=== PATIENT | female | born 1965 | race Caucasian/White ===

== ENCOUNTER → 2020-12-14 09:02 | Outpatient (CLI) | payer BC, SELFPAY ==
[2020-12-14 10:08] LABS: Add Manual Diff / Slide Review NO; Basophils Absolute Auto 100 /uL (0-100); Basophils Percent Auto 1.2 % (0-2); Eosinophils Absolute Auto 100 /uL (0-450); Eosinophils Percent Auto 1.4 % (2-4); Hematocrit 42.8 % (36-46); Hemoglobin 14.1 g/dL (12.0-16.0); Lymphocytes Absolute Auto 1500 /uL (1100-4500); Lymphocytes Percent Auto 34.5 % (25-40); Mean Corpuscular Hemoglobin 29.9 PG (26-34); Mean Corpuscular Volume 90.5 fL (80-100); Monocytes Absolute Auto 400 /uL (0-900); Monocytes Percent Auto 9.5 % (3-14); Neutrophils Absolute Auto 2300 /uL (1500-7000); Neutrophils Percent Auto 53.4 % (50-75); Platelet Count 266 X10^3/uL (150-400); Red Blood Cell Count 4.74 X10^6/uL (4.0-5.2); Red Cell Distribution Width 13.4 % (11.6-14.8); White Blood Cell Count 4.3 X10^3/uL (4.5-11.0)
[2020-12-14 10:49] LABS: Alanine Aminotransferase 11 IU/L (<35); Albumin 4.3 g/dL (3.5-5.0); Albumin Globulin Ratio 1.9 (1.0-2.8); Alkaline Phosphatase 60 U/L (38-126); Aspartate Aminotransferase 25 IU/L (14-36); BUN Creatinine Ratio 15.8 (6-22); Bilirubin Total 0.5 mg/dL (0.2-1.3); Blood Urea Nitrogen 12 mg/dL (7-17); Carbon Dioxide 25 mmol/L (22-32); Chloride 106 mmol/L (98-107); Cholesterol 224 mg/dL (140-199); Estimated Glomerular Filt Rate > 60.0 mL/min (>60); Globulin 2.3 g/dL (1.7-4.1); Glucose 95 mg/dL (70-100); HDL Cholesterol 86 mg/dL (40-60); HEMOLYSIS < 15 (0-50); LDL Cholesterol Calculated 126 mg/dL (<100); Potassium 4.6 mmol/L (3.4-5.1); Sodium 139 mmol/L (137-145); Total Protein 6.6 g/dL (6.3-8.2); Triglycerides 61 mg/dL (35-150)
[2020-12-14 11:14] LABS: TSH w/ Reflex to FT4 1.89 uIU/mL (0.47-4.68)
== END ==
PROVIDERS: PCP Family Medicine; Referring Provider Family Medicine; Visit Provider Family Medicine
DX: F32.9 Major depressive disorder, single episode, unspecified (principal); G43.909 Migraine, unspecified, not intractable, without status migrainosus; L82.1 Other seborrheic keratosis; Z13.220 Encounter for screening for lipoid disorders
CPT/HCPCS: 36415; 80053; 80061; 83036; 84443; 85025

== ENCOUNTER → 2021-05-24 09:22 | Outpatient (CLI) | payer BC, SELFPAY ==
--- NOTE | 2021-05-24 09:24 | DI.US.S_ITS ---
LIMITED ULTRASOUND OF LEFT BREAST: 05/24/2021 CLINICAL: Short term follow up of the left breast. Comparison is made to exams dated: 05/24/2021 mammogram - [facility], 08/18/2020 ultrasound, 02/09/2020 ultrasound, 01/13/2020 mammogram, 11/08/2017 mammogram, and 07/09/2012 mammogram - outside location. Color flow ultrasound of the left breast 2 o'clock region was performed. Roque scale images of the real-time examination were reviewed. There is a stable benign 1.3 cm x 1.3 cm x 1.1 cm oval oil cyst with a smooth internal wall in the left breast at 2 o'clock middle depth 2 cm from the nipple. This oval oil cyst is hypoechoic with posterior acoustic shadowing. This correlates with mammography findings. There are related rim calcifications. There also is a stable benign 0.8 cm x 0.7 cm x 0.6 cm oval cyst with a smooth internal wall in the left breast at 2 o'clock in the retroareolar region. This oval cyst is anechoic with posterior acoustic enhancement. Color flow imaging demonstrates that there is no vascularity present. IMPRESSION: BENIGN There is no sonographic evidence of malignancy. The stable 1.3 cm x 1.3 cm x 1.1 cm oval oil cyst in the left breast at 2 o'clock middle depth is benign. The stable 0.8 cm x 0.7 cm x 0.6 cm oval cyst in the left breast at 2 o'clock in the retroareolar region is benign. A 1 year screening mammogram is recommended. This exam was interpreted at Station ID: [id number]. Electronically Signed By: Kishan johnson/javier:05/24/2021 11:56:42 letter sent: Normal Exam Ultrasound BI-RADS: 2 Benign
--- NOTE | 2021-05-24 09:24 | DI.MG.S_ITS ---
BILATERAL DIGITAL DIAGNOSTIC MAMMOGRAM 3D/2D SHORT-TERM FOLLOW-UP: 05/24/2021 CLINICAL: Short term follow up for bilateral breasts. Family history of breast cancer. Comparison is made to exams dated: 01/13/2020 mammogram, 11/08/2017 mammogram, 07/09/2012 mammogram, 08/18/2020 ultrasound, and 02/09/2020 ultrasound - outside location. The tissue of both breasts is heterogeneously dense. This may lower the sensitivity of mammography. There is an oval low density oil cyst with a circumscribed margin and rim calcifications in the left breast at 2 o'clock middle depth. This is increased in number of calcifications. There also is an oval low density cyst with a circumscribed margin in the left breast at 2 o'clock anterior depth. This is not significantly changed. No other significant masses, calcifications, or other findings are seen in either breast. IMPRESSION: INCOMPLETE: NEEDS ADDITIONAL IMAGING EVALUATION The oval low density oil cyst in the left breast at 2 o'clock middle depth is indeterminate. An ultrasound is recommended. The oval low density cyst in the left breast at 2 o'clock anterior depth is indeterminate. An ultrasound is recommended. This exam was interpreted at Station ID: [id number]. NOTE: For mammograms, a report in lay terms will be sent to the patient. Approximately 15% of breast malignancies will not be visualized mammographically. In the management of a palpable breast mass, a negative mammogram must not discourage biopsy of a clinically suspicious lesion. Electronically Signed By: Kishan johnson/javier:05/24/2021 11:49:51 ACR BI-RADS Category 0: Incomplete 3340F
== END ==
PROVIDERS: PCP Family Medicine; Referring Provider Family Medicine; Visit Provider Family Medicine
DX: R92.8 Other abnormal and inconclusive findings on diagnostic imaging of breast (principal); N60.02 Solitary cyst of left breast; Z80.3 Family history of malignant neoplasm of breast
CPT/HCPCS: 76642; 77066; G0279

== ENCOUNTER → 2022-05-16 11:34 | Outpatient (CLI) | payer BC, SELFPAY ==
[2022-05-16 12:26] LABS: Influenza A - CEPHEID Flu A NEGATIVE (NEGATIVE); Influenza B - CEPHEID Flu B NEGATIVE (NEGATIVE); Respiratory Syncytial Virus Negative (Negative)
[2022-05-16 12:35] LABS: COVID-19 CEPHEID 4-PLEX PCR Negative (Negative)
== END ==
PROVIDERS: PCP Family Medicine; Visit Provider Physician Assistant Medical
DX: R05.9 Cough, unspecified (principal)
CPT/HCPCS: 0241U

== ENCOUNTER → 2022-10-17 08:11 | Outpatient (CLI) | payer BC, SELFPAY ==
[2022-10-17 09:42] LABS: Add Manual Diff / Slide Review NO; Basophils Absolute Auto 100 /uL (0-100); Basophils Percent Auto 1.9 % (0-2); Eosinophils Absolute Auto 100 /uL (0-450); Eosinophils Percent Auto 2.1 % (2-4); Hematocrit 40.5 % (36-46); Hemoglobin 13.9 g/dL (12.0-16.0); Lymphocytes Absolute Auto 1400 /uL (1100-4500); Lymphocytes Percent Auto 32.5 % (25-40); Mean Corpuscular HGB Conc 34.3 % (30-36); Mean Corpuscular Hemoglobin 30.8 PG (26-34); Mean Corpuscular Volume 89.6 fL (80-100); Monocytes Absolute Auto 400 /uL (0-900); Monocytes Percent Auto 8.6 % (3-14); Neutrophils Absolute Auto 2300 /uL (1500-7000); Neutrophils Percent Auto 54.9 % (50-75); Platelet Count 255 X10^3/uL (150-400); Red Blood Cell Count 4.52 X10^6/uL (4.0-5.2); Red Cell Distribution Width 13.6 % (11.6-14.8); White Blood Cell Count 4.2 X10^3/uL (4.5-11.0)
[2022-10-17 10:05] LABS: Alanine Aminotransferase 13 IU/L (<35); Albumin 4.1 g/dL (3.5-5.0); Albumin Globulin Ratio 1.8 (1.0-2.8); Alkaline Phosphatase 62 U/L (38-126); Aspartate Aminotransferase 24 IU/L (14-36); BUN Creatinine Ratio 15.7 (6-22); Bilirubin Total 0.5 mg/dL (0.2-1.3); Blood Urea Nitrogen 11 mg/dL (7-17); Calcium 9.3 mg/dL (8.4-10.2); Carbon Dioxide 26 mmol/L (22-32); Chloride 107 mmol/L (98-107); Cholesterol 222 mg/dL (140-199); Estimated Glomerular Filt Rate > 60 mL/min (>60); Globulin 2.3 g/dL (1.7-4.1); Glucose 88 mg/dL (70-100); HDL Cholesterol 74 mg/dL (40-60); HEMOLYSIS < 15 (0-50); LDL Cholesterol Calculated 137 mg/dL (<100); Potassium 4.3 mmol/L (3.4-5.1); Sodium 140 mmol/L (137-145); Total Protein 6.4 g/dL (6.3-8.2); Triglycerides 53 mg/dL (35-150)
== END ==
PROVIDERS: PCP Family Medicine; Referring Provider Family Medicine; Visit Provider Family Medicine
DX: G43.909 Migraine, unspecified, not intractable, without status migrainosus (principal); I10 Essential (primary) hypertension; R42 Dizziness and giddiness
CPT/HCPCS: 36415; 80053; 80061; 85025

== ENCOUNTER → 2022-12-05 09:16 | Outpatient (CLI) | payer BC, SELFPAY ==
--- NOTE | 2022-12-05 09:17 | DI.MG.S_ITS ---
BILATERAL DIGITAL DIAGNOSTIC MAMMOGRAM 3D/2D: 12/05/2022 CLINICAL: Solitary cyst Left breast. Comparison is made to exams dated: 05/24/2021 mammogram - [facility], 08/18/2020 ultrasound, 02/09/2020 ultrasound, 01/13/2020 mammogram - outside location, and 05/24/2021 ultrasound - [facility]. Both breasts are heterogeneously dense, which may obscure small masses (category c / 51-75% glandular tissue). There is a stable benign oval low density oil cyst with a circumscribed margin and rim calcifications in the left breast at 2 o'clock posterior depth. This correlates with ultrasound findings. Increased rim calcifications. There also is a stable benign oval low density cyst with a circumscribed margin in the left breast at 2 o'clock anterior depth. This correlates with ultrasound findings. Increased rim calcifications. No other significant masses, calcifications, or other findings are seen in either breast. IMPRESSION: BENIGN There is no mammographic evidence of malignancy. Benign oil cysts in the left breast are unchanged in size. A 1 year screening mammogram is recommended. Exam findings were conveyed to the patient. Based on the Tyrer Cuzick model (a risk assessment model) the patient's lifetime risk is 16.9% and her 10 year risk is 5.8%. According to the ACR, ACS, and NCCN guidelines, an annual breast MRI exam along with mammogram is recommended if the patient's lifetime risk is 20% or greater. This exam was interpreted at Station ID: [id number]. NOTE: For mammograms, a report in lay terms will be sent to the patient. Approximately 15% of breast malignancies will not be visualized mammographically. In the management of a palpable breast mass, a negative mammogram must not discourage biopsy of a clinically suspicious lesion. Electronically Signed By: Corey Hackett M.D. [facility]/:12/05/2022 10:04:56 letter sent: Normal Exam ACR BI-RADS Category 2: Benign Finding(s) 3342F
== END ==
PROVIDERS: PCP Family Medicine; Referring Provider Family Medicine; Visit Provider Family Medicine
DX: N60.02 Solitary cyst of left breast (principal)
CPT/HCPCS: 77066; G0279

== ENCOUNTER 2023-05-10 08:14 | Day surgery (SDC) | payer OTHER, SELFPAY ==
--- NOTE | 2023-05-10 | PATH_ITS ---
[place] Accession Number: [id number] No. of containers..01 Tissue . 01 Material submitted: . colon - TRANSVERSE COLON POLYP . 01 Diagnosis: Transverse Colon, Polyp: Tubular adenoma. [facility] 05/23/2023 1058 Local . 01 Electronically signed: . Wendy Hickman MD, Pathologist NPI- [id number] . 01 Gross description: . The specimen is received in formalin, labeled with the patient's name, , and transverse colon polyp, and consists of a single brantley, soft tissue fragment measuring 0.8 cm in greatest dimension. Submitted entirely in cassette A1. ([id number]) /FRR 05/12/2023 1950 Local . 01 Pathologist provided ICD-10: D12.3 . 01 CPT . 784512 Specimen Comment: A courtesy copy of this report has been sent to [phone] Performed at: 01 [facility] [address] [place] [address], [place], [place] [id number] MD Ronak Carrillo MD Phone: [phone]
[2023-05-10 08:31] VITALS: BMI 25.7
[2023-05-10 08:42] VITALS: BP 124/72; PULSE 72; RESP 16; TEMP 36.2; O2SAT 16
[2023-05-10] MEDS: LACTATED RINGERS 1,000 ML 42 ML IV (08:44)
--- NOTE | 2023-05-10 09:32 | PM.HP.1 ---
History of Present Illness History of Present Illness Date Patient Seen: 05/10/23 Time Patient Seen: 09:32 Chief complaint: Colonoscopy Narrative: Sarika Beltran is a 57-year-old woman here for colonoscopy. Her last colonoscopy was in 2019 in [place] was incomplete due to her colon length. She has had prior colonoscopies that were successful and has had polyps removed. She reports occasional tenesmus. [facility] Medical History Acne (~1977) Allergies (~1965) Chicken pox (~1974) Colon polyps (~2009) Cyst of left breast Eczema (~1977) Family hx of colon cancer Hearing loss Hemorrhoid Keloid of skin (~1977) Migraines (~2014) Rosacea (~2010) Vertigo (~1978) Vision disorder Surgical History Anesthesia History of endometrial ablation (~2004) History of tubal ligation (~2004) Family History Mother Hypertension Stroke Chronic a-fib Hyperlipidemia Grandmother Arrhythmia History of heart disease Father History of heart disease Hyperlipidemia Brother Bladder cancer Sister Bile duct obstruction Grandfather Asthma Lung disease Grandfather History of heart disease Grandmother Stroke Congestive heart failure Sister Age: 60 Infiltrating ductal carcinoma of right breast Social History Smoking Status: Former smoker alcohol intake: current Meds Home Medications and Allergies Home Medications Medication Instructions Recorded Confirmed Type hydrocortisone 2.5 % topical cream 1 applic topical BID PRN Headache 12/21/20 05/10/23 History albuterol sulfate 90 mcg/actuation 2 puff inhalation Q6H PRN 05/16/22 05/10/23 Rx aerosol inhaler (Proventil HFA) shortness of breath or wheezing #8.5 grams sumatriptan 5 mg/actuation nasal 5 mg intranasal Q2-4H PRN migraine 05/17/22 05/10/23 Rx spray headache #6 ea Allergies Allergy/AdvReac Type Severity Reaction Status Date / Time amoxicillin Allergy Intermediate Verified 05/10/23 08:29 Sulfa (Sulfonamide Allergy Intermediate Verified 05/10/23 08:29 Antibiotics) Exam Vital Signs (past 8 hours): - 05/10/23 08:42 Temperature 97.2 F L Pulse Rate 72 Respiratory Rate 16 Blood Pressure 124/72 Pulse Oximetry 16 L Oxygen Delivery Method Room Air Oxygen Delivery Method Room Air Const General: No acute distress Resp Effort & Inspection: normal respiratory effort Assessment & Plan Assessment and plan (1) Personal history of colonic polyps: Status: Acute Plan We reviewed the risks and benefits of colonoscopy and she would like to proceed.
[2023-05-10 10:02] VITALS: BP 117/64; PULSE 75; RESP 12; TEMP 36.1; O2SAT 100
[2023-05-10 10:07] VITALS: BP 112/81; PULSE 75; RESP 16; O2SAT 100
[2023-05-10 10:13] VITALS: BP 121/66; PULSE 62; RESP 16; TEMP 36.3; O2SAT 100
--- NOTE | 2023-05-10 10:13 | PM.OP.COLON ---
Operative Date/Time/Diagnoses Date of procedure: 05/10/23 Time of procedure: 10:13 Pre-op diagnosis: History of polyps Post-op diagnosis: same Procedure & Clinicians Study performed: Colonoscopy Same procedure as scheduled: Yes Surgeon: Nathaniel Oliver Procedure Notes Procedure in detail: Surgeon: Nathaniel Oliver MD Anesthesia: Miranda Vicente CRNA Procedure: The patient was brought to the endoscopy suite, placed in left lateral decubitus position. The patient was connected to monitoring devices. A time-out was performed. Sedation was administered. Once the patient was adequately sedated, a digital rectal exam was performed and was normal. The scope was then inserted and advanced to the cecum where the appendiceal orifice was identified and photographed. The scope was then slowly withdrawn over greater than 6 minutes. The mucosa was thoroughly inspected. There was a 4 mm polyp in the transverse colon removed with a cold snare. The scope was retroflexed in the rectum. No other abnormalities were seen. The scope was straightened and removed. The patient was awakened and brought to recovery. Scope withdrawal time: 9 minutes Sedation time: 20 minutes EBL: 3 mL Findings: 4 mm polyp in the transverse colon Post-procedure Disposition: PACU
[2023-05-10 10:18] VITALS: BP 127/62; PULSE 62; RESP 16; TEMP 36.3; O2SAT 100
== END 2023-05-10 10:28 | disposition home or self-care (01) ==
PROVIDERS: Surgery; PCP Family Medicine; Referring Provider Surgery; Visit Provider Surgery
PROC: 0DJD8ZZ Inspection of Lower Intestinal Tract, Via Natural or Artificial Opening Endoscopic (ICD-10-PCS; CPT 45378; principal; 2023-05-10 09:15)
DX: Z12.11 Encounter for screening for malignant neoplasm of colon (principal); Z86.010 Personal history of colon polyps
CPT/HCPCS: 45385

== ENCOUNTER → 2023-11-14 07:37 | Outpatient (CLI) | payer OTHER, SELFPAY | PROVIDERS: PCP Family Medicine; Visit Provider Physician Assistant Surgical | DX: R30.0 Dysuria (principal) | CPT/HCPCS: 87077; 87086; 87186 ==

== ENCOUNTER → 2023-11-27 08:26 | Outpatient (CLI) | payer BC, SELFPAY ==
[2023-11-27 09:19] LABS: Add Manual Diff / Slide Review NO; Basophils Absolute Auto 100 /uL (0-100); Basophils Percent Auto 1.2 % (0-2); Eosinophils Absolute Auto 100 /uL (0-450); Eosinophils Percent Auto 2.9 % (2-4); Hematocrit 40.2 % (36-46); Hemoglobin 13.8 g/dL (12.0-16.0); Lymphocytes Absolute Auto 1700 /uL (1100-4500); Lymphocytes Percent Auto 36.8 % (25-40); Mean Corpuscular HGB Conc 34.2 % (30-36); Mean Corpuscular Hemoglobin 30.7 PG (26-34); Mean Corpuscular Volume 89.7 fL (80-100); Monocytes Absolute Auto 500 /uL (0-900); Monocytes Percent Auto 10.6 % (3-14); Neutrophils Absolute Auto 2200 /uL (1500-7000); Neutrophils Percent Auto 48.5 % (50-75); Platelet Count 328 X10^3/uL (150-400); Red Blood Cell Count 4.49 X10^6/uL (4.0-5.2); Red Cell Distribution Width 13.2 % (11.6-14.8); White Blood Cell Count 4.6 X10^3/uL (4.5-11.0)
[2023-11-27 09:45] LABS: Alanine Aminotransferase 10 IU/L (<35); Albumin 4.1 g/dL (3.5-5.0); Alkaline Phosphatase 49 U/L (38-126); Aspartate Aminotransferase 20 IU/L (14-36); BUN Creatinine Ratio 14.1 (6-22); Bilirubin Total 0.6 mg/dL (0.2-1.3); Blood Urea Nitrogen 10 mg/dL (7-17); Calcium 9.5 mg/dL (8.4-10.2); Carbon Dioxide 27 mmol/L (22-32); Chloride 108 mmol/L (98-107); Cholesterol 224 mg/dL (140-199); Estimated Glomerular Filt Rate > 60 mL/min (>60); Globulin 2.1 g/dL (1.7-4.1); Glucose 85 mg/dL (70-100); HDL Cholesterol 57 mg/dL (40-60); HEMOLYSIS 18 (0-50); LDL Cholesterol Calculated 149 mg/dL (<100); Potassium 4.6 mmol/L (3.4-5.1); Sodium 140 mmol/L (137-145); Total Protein 6.2 g/dL (6.3-8.2); Triglycerides 91 mg/dL (35-150)
[2023-11-27 11:37] LABS: Appearance Urine UA CLEAR; Bilirubin Urine UA NEGATIVE (NEGATIVE); Color Urine UA YELLOW; Glucose Urine UA NEGATIVE (Negative); Ketones Urine UA NEGATIVE (NEGATIVE); Leukocyte Esterase Urine UA TRACE (NEGATIVE); Nitrite Urine UA NEGATIVE (Negative); Occult Blood Urine UA 1+ (Negative); Protein Urine UA NEGATIVE (Negative); Urobilinogen Urine UA 0.2 E.U./dL (0.2)
[2023-11-27 11:45] LABS: pH Urine UA 6.5 (4.5-8.0)
[2023-11-27 12:08] LABS: Bacteria Urine Occasional (0-1); Culture Indicated Urine Cult Not Indicated; RBC Urine 0-1/HPF (0-5/HPF); Squamous Epithelial Cell Urine 0-1 /HPF (0-5/HPF); Urine Volume 10mL (spun); WBC Urine 0-1/HPF (0-5/HPF)
[2023-11-28 06:53] LABS: Apolipoprotein B 114 mg/dL (<90)
== END ==
PROVIDERS: PCP Family Medicine; Referring Provider Family Medicine; Visit Provider Family Medicine
DX: Z00.00 Encounter for general adult medical examination without abnormal findings (principal); G43.909 Migraine, unspecified, not intractable, without status migrainosus; E78.5 Hyperlipidemia, unspecified; D72.819 Decreased white blood cell count, unspecified; R30.0 Dysuria
CPT/HCPCS: 36415; 80053; 80061; 81001; 82172; 85025

== ENCOUNTER → 2024-01-29 13:45 | Outpatient (CLI) | payer BC, SELFPAY ==
--- NOTE | 2024-01-29 13:46 | DI.MG.S_ITS ---
BILATERAL DIGITAL SCREENING MAMMOGRAM 3D/2D WITH CAD: 01/29/2024 CLINICAL: Routine screening. Family history of breast cancer. Comparison is made to exams dated: 12/05/2022 mammogram, 05/24/2021 mammogram - [facility], and 01/13/2020 mammogram - outside location. Both breasts are heterogeneously dense, which may obscure small masses (category c / 51-75% glandular tissue). Current study was also evaluated with a Computer Aided Detection (CAD) system. No significant masses, calcifications, or other findings are seen in either breast. There has been no significant interval change. IMPRESSION: NEGATIVE There is no mammographic evidence of malignancy. A 1 year screening mammogram is recommended. Based on the Tyrer Cuzick model (a risk assessment model) the patient's lifetime risk is 16.5% and her 10 year risk is 6.3%. According to the ACR, ACS, and NCCN guidelines, an annual breast MRI exam along with mammogram is recommended if the patient's lifetime risk is 20% or greater. This exam was interpreted at Station ID: [id number]. NOTE: For mammograms, a report in lay terms will be sent to the patient. Approximately 15% of breast malignancies will not be visualized mammographically. In the management of a palpable breast mass, a negative mammogram must not discourage biopsy of a clinically suspicious lesion. Electronically Signed By: Latosha Hughes M.D., Ph.D. comfort/javier:01/29/2024 16:35:14 letter sent: Normal Exam ACR BI-RADS Category 1: Negative [id number]
== END ==
PROVIDERS: PCP Family Medicine; Referring Provider Family Medicine; Visit Provider Family Medicine
DX: Z12.31 Encounter for screening mammogram for malignant neoplasm of breast (principal); Z80.3 Family history of malignant neoplasm of breast; R92.333 Mammographic heterogeneous density, bilateral breasts
CPT/HCPCS: 77063; 77067

== ENCOUNTER → 2024-03-20 08:01 | Outpatient (CLI) | payer BC, SELFPAY | PROVIDERS: PCP Family Medicine; Visit Provider Nurse Practitioner Family | DX: R30.0 Dysuria (principal) | CPT/HCPCS: 87077; 87086; 87186 ==

== ENCOUNTER → 2024-09-11 08:14 | Outpatient (CLI) | payer BC, SELFPAY ==
--- NOTE | 2024-09-11 08:15 | DI.US.S_ITS ---
PROCEDURE: US PELVIC COMPLETE INDICATIONS: Vaginal Spotting TECHNIQUE: Real-time scanning was performed of the pelvic organs, with image documentation. Additional endovaginal scanning was necessary due to incomplete visualization of the adnexal and endometrial structures by transabdominal scanning. COMPARISON: None. FINDINGS: Uterus: Uterus is anteverted and normal in size at 4.8 x 1.9 x 4.4 cm. The myometrium is heterogeneous. No discrete uterine fibroids. The endometrium measures 2.0 mm combined thickness. There is no endometrial mass or fluid. Ovaries: Bilateral ovaries are not visualized. No adnexal masses are seen. Other: No pathologic free abdominal or pelvic fluid. IMPRESSION: 1. No endometrial mass or fluid. Normal endometrial thickness. No discrete uterine fibroids. 2. Bilateral ovaries are not visualized. No adnexal mass. We strive to produce accurate, complete, and clear reports of imaging services. To assist us in improving patient care, this report was composed using standard report templates and voice recognition software. Therefore, it may contain abnormal punctuation, insertions and/or omissions. Occasional wrong-word or sound-alike substitutions may occur. Though we review the report and make efforts to correct it, we do recommend that the report be read carefully in proper context to recognize any text inaccuracies. Dictated by: Marbin Lr M.D. on 09/11/2024 at 9:23 Approved by: Marbin Lr M.D. on 09/11/2024 at 9:30
== END ==
PROVIDERS: PCP Family Medicine; Referring Provider Family Medicine; Visit Provider Family Medicine
DX: N95.0 Postmenopausal bleeding (principal)
CPT/HCPCS: 76830; 76856

== ENCOUNTER → 2024-11-19 08:13 | Outpatient (CLI) | payer BC, SELFPAY | PROVIDERS: PCP Family Medicine; Visit Provider Chiropractor | DX: R30.0 Dysuria (principal) | CPT/HCPCS: 87077; 87086; 87186 ==

== ENCOUNTER → 2025-01-06 15:32 | Outpatient (CLI) | payer BC, SELFPAY ==
[2025-01-06 17:25] LABS: Add Manual Diff / Slide Review NO; Hematocrit 42.6 % (36-46); Hemoglobin 14.3 g/dL (12.0-16.0); Lymphocytes Absolute Auto 1600 /uL (1100-4500); Mean Corpuscular HGB Conc 33.6 % (30-36); Mean Corpuscular Hemoglobin 30.2 PG (26-34); Mean Corpuscular Volume 90.0 fL (80-100); Platelet Count 259 X10^3/uL (150-400)
[2025-01-06 17:50] LABS: Alanine Aminotransferase 12 IU/L (<35); Albumin 4.8 g/dL (3.5-5.0); Albumin Globulin Ratio 2.0 (1.0-2.8); Alkaline Phosphatase 61 U/L (38-126); Blood Urea Nitrogen 12 mg/dL (7-17); Calcium 9.9 mg/dL (8.4-10.2); Carbon Dioxide 24 mmol/L (22-32); Chloride 106 mmol/L (98-107); Cholesterol 256 mg/dL (140-199); Estimated Glomerular Filt Rate > 60 mL/min (>60); Globulin 2.4 g/dL (1.7-4.1); Glucose 72 mg/dL (70-99); HDL Cholesterol 73 mg/dL (40-60); HEMOLYSIS < 15 (0-50); Potassium 4.5 mmol/L (3.4-5.1); Sodium 139 mmol/L (137-145); Total Protein 7.2 g/dL (6.3-8.2); Triglycerides 109 mg/dL (35-150)
[2025-01-06 18:24] LABS: Ferritin 53 ng/mL (11-264)
[2025-01-06 21:19] LABS: HEMOLYSIS < 15 (0-50); Iron 119 ug/dL (37-170)
[2025-01-06 21:29] LABS: Percent Iron Saturation 34 % (15-50); Total Iron Binding Capacity 354 ug/dL (265-497); Transferrin 313 mg/dL (206-381)
[2025-01-06 21:51] LABS: TSH w/ Reflex to FT4 1.05 uIU/mL (0.47-4.68)
== END ==
PROVIDERS: PCP Family Medicine; Referring Provider Family Medicine; Visit Provider Family Medicine
DX: K64.9 Unspecified hemorrhoids (principal); Z80.0 Family history of malignant neoplasm of digestive organs; Z86.0100 Personal history of colon polyps, unspecified
CPT/HCPCS: 80053; 80061; 82728; 83540; 83550; 84443; 85025

== ENCOUNTER → 2025-05-20 12:36 | Outpatient (CLI) | payer BC, SELFPAY | PROVIDERS: PCP Family Medicine; Visit Provider Physician Assistant Medical | DX: R30.0 Dysuria (principal) | CPT/HCPCS: 87086 ==